=== PATIENT | female | born 1965 | race Caucasian/White ===

== ENCOUNTER → 2016-08-30 | Outpatient (CLI) | payer BC ==
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
== END | disposition home or self-care (01) ==
LOC: RADXRMAIN 11:32
PROVIDERS: ATTEND Internal Medicine
DX: M99.71 Connective tissue and disc stenosis of intervertebral foramina of cervical region (principal); M47.812 Spondylosis without myelopathy or radiculopathy, cervical region
CPT/HCPCS: 72050

== ENCOUNTER → 2016-09-03 | Outpatient (CLI) | payer BC ==
--- NOTE | 2016-09-03 11:17 | XR ---
EXAMINATION TYPE: XR chest 2V DATE OF EXAM: 09/03/2016 11:13 AM COMPARISON: NONE HISTORY: Shortness of breath and weakness. TECHNIQUE: Frontal and lateral views of the chest are obtained. FINDINGS: There is no focal air space opacity, pleural effusion, or pneumothorax seen. The cardiac silhouette size is within normal limits. The osseous structures are intact. IMPRESSION: No acute cardiopulmonary process.
== END | disposition home or self-care (01) ==
LOC: RADXRMAIN 11:01
PROVIDERS: ATTEND Internal Medicine
DX: R06.02 Shortness of breath (principal)
CPT/HCPCS: 71020

== ENCOUNTER → 2016-09-15 | Outpatient (CLI) | payer BC ==
--- NOTE | 2016-09-16 13:55 | MM ---
Reason for exam: screening (asymptomatic). Last mammogram was performed 6 years and 8 months ago. History: Patient is nulliparous. Benign add right US cyst aspiration of the right breast, September 2006. Took hormonal contraceptives for 11 years. Physical Findings: A clinical breast exam by your physician is recommended on an annual basis and results should be correlated with mammographic findings. MG Screening Mammo w CAD Bilateral CC and MLO view(s) were taken. Prior study comparison: January 06, 2010, right breast mammogram dig work up. January 02, 2010, bilateral digital screening mammogram. The breast tissue is heterogeneously dense. This may lower the sensitivity of mammography. Finding: There are intermediate concern, suspicious grouped/clustered calcifications in the middle position of the right breast, 3cm from the nipple. New finding since January 06, 2010 and January 02, 2010. ASSESSMENT: Incomplete: need additional imaging evaluation, BI-RAD 0 RECOMMENDATION: Special view mammogram of the right breast. [facility] will attempt to contact patient to return for supplemental views.
== END | disposition home or self-care (01) ==
LOC: RADMAMWWP 12:35
PROVIDERS: ATTEND Family Medicine
DX: Z12.31 Encounter for screening mammogram for malignant neoplasm of breast (principal)

== ENCOUNTER → 2016-09-23 | Outpatient (CLI) | payer BC ==
--- NOTE | 2016-09-27 07:40 | MM ---
Reason for exam: additional evaluation requested from abnormal screening. Last mammogram was performed less than 1 month ago. History: Patient is nulliparous. Benign add right US cyst aspiration of the right breast, September 2006. Took hormonal contraceptives for 11 years. Physical Findings: Nurse did not find any significant physical abnormalities on exam. MG 3D Work Up W/Cad RT CC and MLO view(s) were taken of the right breast. Prior study comparison: September 15, 2016, bilateral MG screening mammo w CAD. January 06, 2010, right breast mammogram dig work up. The breast tissue is heterogeneously dense. This may lower the sensitivity of mammography. Finding: There are grouped/clustered calcifications in the right breast. New finding since September 15, 2016 and January 06, 2010. These results were verbally communicated with the patient and result sheet given to the patient on 09/23/16. ASSESSMENT: Suspicious, BI-RAD 4 RECOMMENDATION: Stereotactic core biopsy of the right breast. Called Dr. David with mammographic findings and has scheduled an appointment for the patient for 09/30/16 at 1:[address] Swain. PRELIMINARY REPORT CALLED AND FAXED TO DR. SWAIN ON 09/27/16 AT 300/TP.
== END | disposition home or self-care (01) ==
LOC: RADMAMWWP 14:40
PROVIDERS: ATTEND Family Medicine
DX: R92.8 Other abnormal and inconclusive findings on diagnostic imaging of breast (principal)
CPT/HCPCS: G0206; G0279

== ENCOUNTER → 2016-09-23 | Outpatient (CLI) | payer BC ==
--- NOTE | 2016-09-23 15:32 | US ---
EXAMINATION TYPE: US pelvic complete DATE OF EXAM: 09/23/2016 3:09 PM COMPARISON: No previous CLINICAL HISTORY: R10.2 PELVIC PAIN. Pelvic cramping and spotting, abnormal cycles, 0 TECHNIQUE: Transvaginal (TV) and Transabdominal (TA), endovaginal scanning performed for better eval uation of the uterus Date of LMP: 6 months ago EXAM MEASUREMENTS: Uterus: 6.4 x 3.6 x 4.1 cm Endometrial Stripe: 0.4 cm Right Ovary: not seen Left Ovary: not seen TECHNOLOGIST IMPRESSION: 1. Uterus: Anteverted, heterogeneous echotexture without any definite lesions seen at this time, nab othian cyst 2. Endometrium: limited visualization due to heterogeneous uterine echotexture, fluid in endocervica l canal 3. Right Ovary: not seen due to overlying peristalsing bowel 4. Left Ovary: not seen due to overlying peristalsing bowel 5. Bilateral Adnexa: wnl 6. Posterior cul-de-sac: wnl IMPRESSION: Fluid along the endocervical canal, consider biopsy as indicated.
== END | disposition home or self-care (01) ==
LOC: RADUSWWP 14:42
PROVIDERS: ATTEND Obstetrics & Gynecology
DX: R10.2 Pelvic and perineal pain (principal)
CPT/HCPCS: 76830; 76856

== ENCOUNTER → 2016-10-07 | Day surgery (SDC) | payer BC ==
[~2016-10-07] MED LIST: BACITRACIN OINT 1 EACH PACKET TOPICAL ONE; BUPIVACAIN-EPI 0.25%-1:200,000 30 ML VIAL ONE; LIDOCAINE 1% INJ 10MG/ML (20 ML MDV) ONE; SODIUM BICARB 4% 5 ML VIAL (0.48 MEQ/ML) ONE
--- NOTE | 2016-10-07 09:06 | MM ---
EXAMINATION TYPE: MG stereo VAD BX RT DATE OF EXAM: 10/07/2016 8:55 AM COMPARISON: Prior mammogram September 23, 2016 and older studies CLINICAL HISTORY: Abnormal mammogram, suspicious group of calcifications right breast. TECHNIQUE: Stereotactic guided core biopsy of right breast with clip placement and follow-up two-view mammogram. FINDINGS: The procedure of stereotactic guided core biopsy was explained to the patient. Benefits, alternatives, and risks were discussed. An informed consent was then obtained. The shortness pathway for biopsy was chosen. Shortness pathway was inferior approach. I performed the localization, then surgeon, Dr. Swain performed the remainder of the procedure. A vacuum assisted biopsy gun was used to obtain multiple core samples. The patient tolerated the procedure well without any immediate complication. The patient was kept in the radiology department for short stay after the procedure and then discharged home in stable condition. Targeted calcifications are identified in specimen mammogram. Post biopsy mammogram shows the clip to appear in satisfactory position relative to the targeted area of concern on the preprocedure images. IMPRESSION: SUCCESSFUL, UNCOMPLICATED STEREOTACTIC GUIDED CORE BIOPSY OF AREA OF CONCERN IN THE RIGHT BREAST, FULL PATHOLOGY RESULTS TO FOLLOW. Intermediate index of suspicion noted at time of procedure. Pathology Results: Benign BREAST, RIGHT, STEREOTACTIC CORE BIOPSY: FIBROCYSTIC CHANGE (STROMAL FIBROSIS, CYST FORMATION, ADENOSIS, DUCT HYPERPLASIA AND CALCIFICATIONS). Recommendation Follow up mammogram of the right breast in 6 months. MTDD
--- NOTE | 2016-10-11 23:52 | PCN ---
DATE OF PROCEDURE: 10/07/2016. PREOPERATIVE DIAGNOSIS: Abnormal mammogram, right breast. POSTOPERATIVE DIAGNOSIS: Abnormal mammogram, right breast. OPERATION: Right stereotactic breast biopsy with tissue marker placement. ANESTHESIA: Local. COMPLICATIONS: None. SPECIMEN: Breast tissue. Referring: Dr. David GROSS FINDINGS AND PROCEDURE: The patient is a 51-year-old female who had a mammogram done showing change in an area of microcalcifications for which stereotactic biopsy was recommended. She is taken to the stereotactic suite where the area of concern is marked by the radiologist. The breast is then prepped, and local anesthetic is instilled into the skin and breast tissue. Skin halina is made and the needle is advanced to appropriate depth. Prefire films were obtained showing the needle in good position. Multiple vacuum-assisted automated cores were obtained. Specimen mammography showed the microcalcifications within the specimen. Markers placed. The needle was withdrawn. Mammogram showed the marker to be in good position. She tolerated the procedure without difficulty and I will see her in the office next week.
== END | disposition home or self-care (01) ==
LOC: RADMAMWWP 07:21
PROVIDERS: ATTEND Surgery
DX: N60.31 Fibrosclerosis of right breast (principal); N60.01 Solitary cyst of right breast; N60.21 Fibroadenosis of right breast; N60.91 Unspecified benign mammary dysplasia of right breast; R92.1 Mammographic calcification found on diagnostic imaging of breast
CPT/HCPCS: 88305; 19081; A4648; J2001

== ENCOUNTER → 2019-04-06 | Outpatient (CLI) | payer BC | END | disposition home or self-care (01) | LOC: LABWHC1 04-05 13:56 | PROVIDERS: ATTEND Obstetrics & Gynecology | DX: N83.202 Unspecified ovarian cyst, left side (principal) | CPT/HCPCS: 36415; 86304 ==

== ENCOUNTER 2021-07-21 12:31 | Emergency (ER) | payer BC ==
[2021-07-21 12:45] VITALS: RESP 16
[2021-07-21] MEDS ORDERED: ACETAMINOPHEN TAB 500 MG TAB PO STA (14:52)
--- NOTE | 2021-07-21 14:54 | ED ---
General Adult HPI - General Chief complaint: Recheck/Abnormal Lab/Rx Stated complaint: Covid+/BAM Time Seen by Provider: 07/21/21 13:58 Source: patient Mode of arrival: ambulatory Limitations: no limitations - History of Present Illness Initial comments: 56-year-old female presents to the emergency room for a chief complaint of wanting COVID-19 antibodies. Patient states that she tested positive for COVID- 19. She states she has had symptoms for about 4 days now. Patient's recently tested positive as well. Patient admits to body aches and cough but denies chest pain or shortness of breath.Patient has no other complaints at this time including shortness of breath, chest pain, abdominal pain, nausea or vomiting, or visual changes. - Related Data Allergies Allergy/AdvReac Type Severity Reaction Status Date / Time No Known Allergies Allergy Verified 07/21/21 12:42 Review of Systems ROS Statement: Those systems with pertinent positive or pertinent negative responses have been documented in the HPI. ROS Other: All systems not noted in ROS Statement are negative. Past Medical History Past Medical History: No Reported History History of Any Multi-Drug Resistant Organisms: None Reported Past Surgical History: Tubal Ligation Past Psychological History: No Psychological Hx Reported Smoking Status: Never smoker Past Alcohol Use History: None Reported Past Drug Use History: None Reported General Exam Limitations: no limitations General appearance: alert, in no apparent distress Head exam: Present: atraumatic Eye exam: Present: normal appearance, PERRL, EOMI. Absent: scleral icterus, conjunctival injection ENT exam: Present: normal exam, mucous membranes moist Neck exam: Present: normal inspection, full ROM. Absent: tenderness Respiratory exam: Present: normal lung sounds bilaterally. Absent: respiratory distress, wheezes Cardiovascular Exam: Present: regular rate, normal rhythm, normal heart sounds GI/Abdominal exam: Present: soft, normal bowel sounds. Absent: distended, tenderness Neurological exam: Present: alert Course Vital Signs 07/21/21 12:42 Temperature 99.6 F Pulse Rate 75 Respiratory 16 Rate Blood Pressure 131/66 O2 Sat by Pulse 99 Oximetry Medical Decision Making - Medical Decision Making Vitals are stable. Patient is well appearing. Patient would like COVID-19 antibody infusion. This was ordered for her. She was monitored for an hour in the emergency room after the infusion to watch for any ALLERGIC reactions. I did discussed return parameters and outpatient follow-up. She will return for any worsening symptoms. - Lab Data Lab Results 07/21/21 Range/Units 12:46 Coronavirus (PCR) Detected A (Not Detectd) Disposition Clinical Impression: COVID-19 Disposition: HOME SELF-CARE Condition: Good Instructions (If sedation given, give patient instructions): Coronavirus Disease 2019 (COVID-19) Additional Instructions: Please follow up with primary care in 1-2 days. Return to the emergency room for any worsening symptoms. Is patient prescribed a controlled substance at d/c from ED?: No Referrals: Avel Pereyra MD [Primary Care Provider] - 1-2 days Time of Disposition: 14:54
[2021-07-21] MEDS ORDERED: CASIRIVIMAB (REGN10933) (EUA) 600 MG, IMDEVIMAB (REGN10987) (EUA) 600 MG in SODIUM CHLO... IVPB ONE (15:00)
[2021-07-21] MEDS ORDERED: SODIUM CHLORIDE 0.9% 50 ML IVPB ONE (15:30)
[2021-07-21 15:40] VITALS: BP 129/80; PULSE 87; TEMP 98.9
== END 2021-07-21 16:42 | disposition home or self-care (01) ==
LOC: EC 12:31
DX: U07.1 COVID-19 (principal)
CPT/HCPCS: 87635; 99283; Q0244